=== PATIENT | female | born 1990 | race Hispanic/Latino ===

== ENCOUNTER → 2025-07-02 | Outpatient (CLI) | payer BC ==
[2025-07-02 21:54] VITALS: PULSE 60; RESP 12
[2025-07-02 22:33] VITALS: PULSE 60; RESP 10
[2025-07-02 23:00] VITALS: PULSE 60; RESP 8
[2025-07-02 23:30] VITALS: PULSE 67; RESP 12
[2025-07-03] VITALS (11 sets, daily range): PULSE 63–84; RESP 10–14
== END | disposition home or self-care (01) ==
LOC: SLP 20:23
PROVIDERS: ATTEND Family Medicine
DX: G47.33 Obstructive sleep apnea (adult) (pediatric) (principal); R06.83 Snoring; R51.9 Headache, unspecified; G93.32 Myalgic encephalomyelitis/chronic fatigue syndrome; R45.1 Restlessness and agitation
CPT/HCPCS: 95810